=== PATIENT | female | born 1985 | race African-American/Black ===

== ENCOUNTER 2024-09-04 16:04 | Emergency (ER) | payer MEDICAID ==
[~2024-09-04] VITALS: Ht 170.2 cm; Wt 91.0 kg
[2024-09-04 16:07] VITALS: BP 160/102; PULSE 78; RESP 18; TEMP 36.8; O2SAT 98
[2024-09-04 16:48] LABS: BASOPHILS % 0.7 % (0.0-2.0); EOSINOPHILS % 0.6 % (0.0-5.0); HEMATOCRIT. 32.7 % (36.0-48.0); HEMOGLOBIN. 9.8 g/dL (12.0-16.0); LYMPHOCYTES % 29.8 % (20.0-50.0); MEAN CORPUSCULAR HEMOGLOBIN 17.5 pg (28.0-32.0); MEAN CORPUSCULAR VOLUME 58.1 fL (81.0-99.0); MEAN PLATELET VOLUME 8.6 fl (7.4-10.4); MONOCYTES % 9.6 % (2.0-8.0); NEUTROPHILS % 59.3 % (40.0-76.0); PLATELET 345 x1000/uL (130-400); RED BLOOD CELL COUNT 5.63 mill/uL (4.2-5.4); WHITE BLOOD COUNT 5.8 x1000/uL (4.5-11.0)
[2024-09-04 16:51] LABS: ADD RBC MORPHOLOGY YES; DIFFERENTIAL COMMENT 1
[2024-09-04] MEDS: ONDANSETRON 4MG ODT PO ONE (16:51)
[2024-09-04] MEDS: MAGNESIUM/ALUMINUM HYDROXIDE/SIMETHICONE 30ML UDC PO ONE (16:51)
[2024-09-04 16:55] LABS: CHLORIDE 103 mEq/L (98-107); POTASSIUM 3.9 mEq/L (3.5-5.1); SODIUM 138 mEq/L (136-145)
[2024-09-04 16:56] LABS: CARBON DIOXIDE 29 mEq/L (21-32)
[2024-09-04 16:59] LABS: HCG SCREEN NEGATIVE
[2024-09-04 17:01] LABS: CREATININE 1.4 mg/dL (0.6-1.0); GLUCOSE 94 mg/dL (70-105)
[2024-09-04 17:02] LABS: UREA NITROGEN BLOOD 17 mg/dL (9-23)
[2024-09-04 17:03] LABS: ALANINE AMINOTRANSFERASE 16 IU/L (10-49); ALBUMIN 4.4 g/dL (3.2-4.8); ASPARTATE AMINOTRANSFERASE 23 IU/L (<34)
[2024-09-04 17:04] LABS: BILIRUBIN DIRECT 0.3 mg/dL (<=3.0); PROTEIN TOTAL 8.1 g/dL (6.0-8.3)
[2024-09-04 17:15] LABS: ANISOCYTOSIS 2+; HYPOCHROMASIA 3+; MICROCYTOSIS 3+; PLATELET ESTIMATE NORMAL
== END 2024-09-04 20:30 | disposition home or self-care (01) ==
LOC: ER 16:04
DX: R10.9 Unspecified abdominal pain (principal)
CPT/HCPCS: 99284; 74176; 80076; 80048; 84703; 83690; 85025; 36415; Q0162